=== PATIENT | male | born 2000 | race Hispanic/Latino ===

== ENCOUNTER 2020-12-30 18:10 | Emergency (ER) | payer BC, OTHER | END 2020-12-30 20:40 | disposition home or self-care (01) | LOC: CSHERS 18:10 | DX: S49.92XA Unspecified injury of left shoulder and upper arm, initial encounter (principal); X50.3XXA Overexertion from repetitive movements, initial encounter; Y93.43 Activity, gymnastics; Y92.39 Other specified sports and athletic area as the place of occurrence of the external cause ==